=== PATIENT | male | born 2000 | race African-American/Black ===

== ENCOUNTER 2022-02-09 02:07 | Emergency (ER) | payer SELFPAY ==
[2022-02-09] VITALS (7 sets, daily range): BP systolic 122–142; BP diastolic 79–93
[~2022-02-09] VITALS: Ht 180.3 cm; Wt 79.5 kg
[~2022-02-09 02:07] MED LIST: BACTRIM DS1 TAB PO; KEFLEX500 M1 PO
[2022-02-09 02:30] LABS: MEAN CORPUSCULAR HGB 29.9 pG CALC (26.0-32.0); MEAN CORPUSCULAR HGB CONC 31.5 g/dL CAL (32.0-36.0); NEUT# 3.19 thou/uL (1.82-7.42); RED BLOOD COUNT 5.05 mill/uL (4.70-6.10); RED CELL DISTRI WIDTH 12.3 % (11.5-15.5)
[2022-02-09 02:31] LABS: HEMATOCRIT 47.9 % (39.0-50.0); HEMOGLOBIN 15.1 g/dl (14.0-18.0); MEAN CELL VOLUME 94.9 fL CALC (80.0-100.0)
== END 2022-02-09 03:38 | disposition home or self-care (01) | DRG 195 ==
LOC: ED 02:07
PROVIDERS: Family Medicine
DX: J10.1 Influenza due to other identified influenza virus with other respiratory manifestations (principal); Z20.822 Contact with and (suspected) exposure to COVID-19

== ENCOUNTER 2023-03-27 12:40 | Emergency (ER) | payer SELFPAY ==
[~2023-03-27] VITALS: Ht 180.3 cm; Wt 81.0 kg
[2023-03-27] MEDS ORDERED: TAM75CAP PO (13:39)
[2023-03-27] MEDS ORDERED: ONDANSETRON4 MG PO (13:39)
[2023-03-27 13:57] VITALS: BP 157/98
== END 2023-03-27 13:58 | disposition home or self-care (01) | DRG 195 ==
LOC: ED 12:40
DX: J10.1 Influenza due to other identified influenza virus with other respiratory manifestations (principal)

== ENCOUNTER 2024-05-21 20:11 | Emergency (ER) | payer SELFPAY ==
[~2024-05-21] VITALS: Ht 180.3 cm; Wt 84.0 kg
[2024-05-21] VITALS (8 sets, daily range): BP systolic 164–192; BP diastolic 93–106
[~2024-05-21 20:11] MED LIST changes: +ALLEGRA-D 2424 HOUR PO; +FLONASE AL50 MCG/ACT; +ONDANSETRON4 MG PO; +TAM75CAP PO
[2024-05-21] MEDS ORDERED: SODIUM CHLORIDE 0.9% 1,000 ML IV STA (21:02)
[2024-05-21] MEDS ORDERED: PROMETHAZINE HCL 25 MG/ML AMP IV ONE (21:05)
[2024-05-21 21:50] LABS: BASO% 0.2 % (0-3); HEMATOCRIT 44.6 % (39.0-50.0); HEMOGLOBIN 14.2 g/dl (14.0-18.0); LYMPH% 20.8 % (15-41); MEAN CELL VOLUME 96.1 fL CALC (80.0-100.0); MEAN CORPUSCULAR HGB 30.6 pG CALC (26.0-32.0); MEAN CORPUSCULAR HGB CONC 31.8 g/dL CAL (32.0-36.0); MONO% 11.8 % (2-13); NEUT# 3.94 thou/uL (1.82-7.42); NEUT% 67.2 % (42-76); RED BLOOD COUNT 4.64 mill/uL (4.70-6.10); RED CELL DISTRI WIDTH 12.2 % (11.5-15.5)
[2024-05-21 22:01] LABS: ALBUMIN 5.2 g/dL (3.2-5.0); BILIRUBIN, TOTAL 1.2 mg/dL (0.2-1.3); CREATININE 1.1 mg/dL (0.7-1.3); POTASSIUM 4.2 mmol/l (3.5-5.1); TOTAL PROTEIN 8.5 g/dL (6.3-8.2)
[2024-05-21] MEDS ORDERED: LACTATED RINGER'S 1,000 ML IV ONE (23:00)
[2024-05-21] MEDS ORDERED: dilTIAZem HCl EXTENDED RELEASE 120 MG CAP PO ONE (23:05)
[2024-05-21 23:08] LABS: URINE BILIRUBIN - DIPSTICK Negative (NEGATIVE); URINE BLOOD DIPSTICK Negative (NEGATIVE); URINE GLUCOSE - DIPSTICK Negative (NEGATIVE); URINE KETONE 15 mg/dL (NEGATIVE); URINE LEUK ESTERASE Negative (NEGATIVE); URINE NITRITE - DIPSTICK Negative (Negative); URINE PH 8.5 (4.5-8.0); URINE PROTEIN - DIPSTICK Negative (NEG-TRACE); URINE SPECIFIC GRAVITY 1.015
[2024-05-21 23:09] LABS: URINE COLOR Yellow
[2024-05-21] MEDS ORDERED: CARDIZEM CD240 MG PO (23:22)
[2024-05-21] MEDS ORDERED: PROMETHAZINE HY25 M1 PO (23:22)
== END 2024-05-21 23:44 | disposition home or self-care (01) | DRG 392 ==
LOC: ED 20:11
PROVIDERS: Family Medicine
DX: A08.4 Viral intestinal infection, unspecified (principal); I10 Essential (primary) hypertension; Z20.822 Contact with and (suspected) exposure to COVID-19
CPT/HCPCS: J2550

== ENCOUNTER 2024-06-27 08:06 | Emergency (ER) | payer SELFPAY ==
[2024-06-27] VITALS (8 sets, daily range): BP systolic 133–161; BP diastolic 75–92
[~2024-06-27] VITALS: Ht 180.3 cm; Wt 79.0 kg
[~2024-06-27 08:06] MED LIST changes: +CARDIZEM CD240 MG PO; +PROMETHAZINE HY25 M1 PO
[2024-06-27] MEDS ORDERED: SODIUM CHLORIDE 0.9% 1,000 ML IV ONE (08:15)
[2024-06-27 08:30] LABS: URINE BILIRUBIN - DIPSTICK Negative (NEGATIVE); URINE BLOOD DIPSTICK Moderate (NEGATIVE); URINE GLUCOSE - DIPSTICK Negative (NEGATIVE); URINE KETONE 15 mg/dL (NEGATIVE); URINE LEUK ESTERASE Negative (NEGATIVE); URINE NITRITE - DIPSTICK Negative (Negative); URINE PROTEIN - DIPSTICK 100 mg/dL (NEG-TRACE); URINE SPECIFIC GRAVITY 1.025
[2024-06-27 08:34] LABS: BASO% 0.2 % (0-3); HEMATOCRIT 49.7 % (39.0-50.0); HEMOGLOBIN 15.2 g/dl (14.0-18.0); IMMATURE GRANULOCYTES 0.8 % (0.0-5.0); LYMPH% 55.4 % (15-41); MEAN CORPUSCULAR HGB 30.6 pG CALC (26.0-32.0); MEAN CORPUSCULAR HGB CONC 30.6 g/dL CAL (32.0-36.0); MONO% 10.1 % (2-13); NEUT# 2.53 thou/uL (1.82-7.42); NEUT% 28.5 % (42-76); RED BLOOD COUNT 4.97 mill/uL (4.70-6.10); RED CELL DISTRI WIDTH 11.8 % (11.5-15.5)
[2024-06-27 08:35] LABS: URINE COLOR Yellow
[2024-06-27 08:41] LABS: URINE RBC 0-2 RBC/hpf (0-5)
[2024-06-27 08:42] LABS: URINE MUCUS FEW hpf (NONE-FEW)
[2024-06-27 08:42] LABS: ALBUMIN 5.7 g/dL (3.2-5.0); BILIRUBIN, TOTAL 1.1 mg/dL (0.2-1.3); CREATININE 1.5 mg/dL (0.7-1.3); POTASSIUM 4.1 mmol/l (3.5-5.1); TOTAL PROTEIN 9.1 g/dL (6.3-8.2)
== END 2024-06-27 09:46 | disposition home or self-care (01) | DRG 101 ==
LOC: ED 08:06
PROVIDERS: Family Medicine
DX: R56.9 Unspecified convulsions (principal)